=== PATIENT | male | born 1960 | race Caucasian/White ===

== ENCOUNTER 2022-12-30 05:23 | Observation (INO) ==
--- NOTE | 2022-12-19 15:08 | Anesthesiology Consultation ---
Date of Service December 19, 2022 Assessment & Plan (1) Encounter for pre-operative examination: - check BSG am DOS. - potential difficult intubation: chronic neck stiffness. - COVID screening: Per director of medicare on 12/19/2022: Travel screen negative, no known COVID-19 positive contacts or current COVID-19 related symptoms in past 2 weeks. To surgeon's discretion if preop COVID testing is needed. Chart Review Chart Review: Acceptable Risk for Surgery and Patient NOT seen in Pre Admission Testing History Surgery Operation Date: 12/30/22 07:00 Proposed Procedures p Hand Assisted Laparoscopic Nephrectomy - Left - Danilo Gomez MD Height/Weight Height: 6 ft Weight: 108.862 kg Allergies Allergy/AdvReac Type Severity Reaction Status Date / Time No Known Allergies Allergy Verified 12/19/22 14:21 Medications Home Medications Medication Instructions Recorded Confirmed Last Taken aspirin 81 mg chewable tablet 81 mg PO QAM 12/07/22 12/19/22 Unknown (Abdiel Chewable Low Dose Aspirin) dapagliflozin propanediol 10 mg 10 mg PO QAM 12/07/22 12/19/22 Unknown tablet (Farxiga) gabapentin 600 mg tablet 600 mg PO TID 12/07/22 12/19/22 Unknown lisinopril 10 mg tablet 10 mg PO QAM 12/07/22 12/19/22 Unknown metformin 1,000 mg tablet 1,000 mg PO BID 12/07/22 12/19/22 Unknown multivitamin 1 tab PO QAM 12/07/22 12/19/22 Unknown tirzepatide 7.5 mg/0.5 mL 7.5 mg subcut WK 12/07/22 12/19/22 Unknown subcutaneous pen injector (Mounjaro) cyanocobalamin (vitamin B-12) 5,000 mcg PO QAM 12/19/22 12/19/22 Unknown 5,000 mcg/mL sublingual drops (Vitamin B-12) Past Medical History Medical History (Updated 12/19/22 @ 15:05 by Frances Jane PA-C) Back problem Diabetes NIDDM Gallstones History of colon polyps x1 small HTN (hypertension) Mass of left kidney Neuropathy Snores Stiffness of neck for 2 yr/hx lymes test (-) Past Family History Family History Mother Family history of blood clots Brother Family history of blood clots Brother Family history of blood clots Past Surgical History Surgical History History of arthroscopic surgery of shoulder right History of back surgery History of colonoscopy Social History Smoking Status: Never smoker Do You Dip or Chew Tobacco: No Hx Alcohol Use: No alcohol intake frequency: holidays/special occasions only Hx Substance Use: No substance use type: does not use Lab Results Anesthesia Preop Results Results Anesthesia Widget: WBC 6.76 K/ul (4.8-10.8) 12/15/22 Hgb 13.5 g/dl (14.0-18.0) L 12/15/22 Hct 41.0 % (42.0-52.0) L 12/15/22 Plt 282 K/uL (130-400) 12/15/22 Na 135 mmol/L (136-145) L 12/15/22 K 4.0 mmol/L (3.5-5.1) 12/15/22 Cl 101 mmol/L (98-107) 12/15/22 CO2 25 mmol/L (21-32) 12/15/22 BUN 14 mg/dl (6-23) 12/15/22 Creat 0.86 mg/dl (0.6-1.4) 12/15/22 Glucose Level 208 mg/dl (70-99(Fasting)) H 12/15/22 Testing Laboratory Results 10/28/22 A1c: 6.3% UA 12/15/22: urine culture-final, no growth Electrocardiogram Date: 12/15/22 Sinus rhythm with frequent PVCs, rate 79 bpm Chest X-Ray Date: 12/15/22 No prior studies are available for comparison at the time of dictation. The heart is mildly enlarged. The pulmonary vasculature is noncongested. The lungs and pleural spaces are clear. There is no pneumothorax. The bony thorax appears intact. Gallstones are noted in the upper abdomen. IMPRESSION: No active disease in the chest. Other Testing Abdomen pelvis CT 12/15/22 1. There is a 7.8 cm heterogeneous mass lesion arising from the upper pole of the left kidney as detailed above. A renal cell carcinoma is the diagnosis of exclusion. 2. The mass lesion distorts and may invade the left upper pole collecting system. There is no evidence of left renal vein involvement. 3. There is a a 9 mm enhancing nodule between the upper pole of the left kidney and the spleen. Although this could represent a splenule, a perirenal implant is not excluded. 4. There is no evidence of distant metastatic disease in the abdomen or pelvis. 5. No enhancing cortical lesion is seen in the right kidney. 6. Cholelithiasis. 7. Additional findings as above.
[2022-12-30] MEDS ORDERED: LR 15ML/HR IV SCH (06:00)
[2022-12-30] MEDS ORDERED: SUGAMMADEX SODIUM 200 MG/2 ML VIAL IV ONE (06:43)
[2022-12-30] MEDS ORDERED: fentaNYL citrate PF 100 MCG/2 ML VIAL ONE (06:43)
[2022-12-30] MEDS ORDERED: PROPOFOL IV EMULSION 10 MG/ML 20 ML VIAL IV ONE (06:43)
[2022-12-30] MEDS ORDERED: ONDANSETRON INJ 2 MG/ML 2 ML VIAL ONE (06:43)
[2022-12-30] MEDS ORDERED: MIDAZOLAM HCL 1 MG/ML 2ML VIAL ONE (06:43)
[2022-12-30] MEDS ORDERED: ROCURONIUM BROMIDE 10 MG/ML 5 ML VIAL IV ONE ×2 (06:43→07:51)
[2022-12-30] MEDS ORDERED: DEXAMETHASONE SOD INJ 4 MG/ML VIAL ONE (06:43)
[2022-12-30] MEDS ORDERED: LIDOCAINE 2% 2 ML VIAL/AMP(20MG/ML) INFIL ONE (06:43)
--- NOTE | 2022-12-30 06:48 | History & Physical Bridge Note ---
Date of Service December 30, 2022 History & Physical Bridge Note I have examined the patient, reviewed the History & Physical and in the interval since the performance of the History & Physical I have noted the following changes of clinical significance: no changes noted
[2022-12-30] MEDS ORDERED: BUPIVACAINE 0.5 % 5 MG/1 ML MPF 30ML VIAL ONE (06:55)
[2022-12-30] MEDS ORDERED: HYDROmorphone INJ 2 MG/ML SYR/VIAL ONE (07:51)
[2022-12-30] MEDS ORDERED: ATROPINE SULFATE 0.1 MG/ML 10ML SYR IV PRN (08:00)
[2022-12-30] MEDS ORDERED: HYDROmorphone INJ 1 MG/ML SYRINGE IV PRN (08:00)
[2022-12-30] MEDS ORDERED: PROMETHAZINE HCL 12.5 MG in SODIUM CHLORIDE 0.9% 50 ML IV PRN (08:00)
[2022-12-30] MEDS ORDERED: ONDANSETRON INJ 2 MG/ML 2 ML VIAL IV PRN ×2 (08:00→12:12)
[2022-12-30] MEDS ORDERED: NALOXONE HCL 0.4 MG/1 ML VIAL/CARP IV PRN (08:00)
[2022-12-30] MEDS ORDERED: FLUMAZENIL 0.1 MG/1 ML 10 ML VIAL IV PRN (08:00)
[2022-12-30] MEDS ORDERED: ePHEDrine sulfate 50 MG/ML AMP IV PRN (08:00)
[2022-12-30] MEDS ORDERED: LABETALOL HCL IV 5 MG/ML 20ML IV PRN (08:00)
[2022-12-30] MEDS ORDERED: KETAMINE 50 MG/5 ML SYRINGE ONE (08:03)
[2022-12-30] MEDS ORDERED: LABETALOL HCL IV 5 MG/ML 20ML IV ONE (08:03)
--- NOTE | 2022-12-30 10:01 | Operative Report ---
PG Post Operative Report Pre & Post Diagnosis Operation Date: 12/30/22 07:00 Pre-Op Diagnosis: Left Renal Mass Post-Op Diagnosis: Left Renal Mass I identified the patient and participated in the time-out.: Yes Procedure Operation Date: 12/30/22 07:00 Actual Procedures p Hand Assisted Laparoscopic Nephrectomy - Left(Left) - Danilo Gomez MD Surgeon Danilo Gomez MD Lap Hand Tool Radha Weaver Estimated Blood Loss 25 Findings Consistent with Post-Op Diagnosis Specimens left kidney and portion of adrenal gland Description of Procedure Patient identified in the preoperative holding area, appropriate informed consents were reviewed and completed and he was transported to the operating suite. Upon arrival he received appropriate preoperative antibiotics in the form of Ancef. Adequate general anesthesia was induced and he was placed in a [id number] left side up lateral decubitus position and padded and braced appropriately. The bed was flexed. A Abraham style incision was made in the left lower quadrant to accommodate a GelPort retractor. This incision was carried through the superficial tissues including Norberto's fascia before exposure of the external oblique fascia. This was incised sharply and opened for the length of the incision. I then incised and opened the internal oblique fascia. Transversalis fascia was likewise opened before piercing the peritoneum sharply and performing a finger sweep. There were no adhesions in this area and the peritoneum was opened for the length of the incision. The GelPort retractor was then placed. I insufflated the abdomen through the GelPort by utilizing a 12 mm trocar placed through the opening of the GelPort. Inspection revealed a clear anterior abdominal wall and 212 mm aquatics assistant department head ports were placed a few centimeters lateral to the rectus border, the first placed approximately 3 fingerbreadths below the costal margin on the second approximately 8 cm inferior. To begin the laparoscopic portion of the case we mobilized the colon by incising the white line of Toldt and incising the peritoneum overlying the kidney. I carried this dissection between the kidney and the spleen to further allow mobilization of the kidney and medialization of the colon. After exposing the anterior and medial surface of the kidney, I was able to identify the gonadal vein. The anterior surface of the gonadal vein was exposed and I created a window just lateral to the gonadal vein and onto the psoas muscle. I was able to use this window to elevate the kidney and stretch the hilar structures. I dissected up the gonadal vein until we encountered the inferior aspect of the renal vein. Of note, there was a lobulated tissue mass just on top of the vein that I thought may be a lymph node. Unfortunately the size of this tissue limited the ability to pass a staple load across both that structure and the hilar structures simultaneously. In turn, I dissected behind this lesion and anterior to the renal vein the structure from the underlying renal vasculature. The vein and artery were then in a solitary packet and were controlled with a solitary staple load. Moving to the medial side of this somewhat protuberant tissue I was able to fire a second staple load and control it. This protuberant tissue was contained within the specimen. I then dissected up to the adrenal gland and used a staple load to fire across the medial portion of the adrenal gland. Because this is a large upper pole mass I elected to keep the majority of the adrenal gland with the specimen. We completed my cephalad dissection with harmonic scalpel. The lateral aspect of the kidney was then mobilized also with a harmonic scalpel before skeletonizing to Rhodus fascia inferior to the kidney. A staple load was used to control the lower portion of Gerota's fascia. This included the ureter. The specimen was then entirely freed and was extracted through the GelPort. Inspection of the renal fossa revealed excellent hemostasis. The colon was guided back into the left hemiabdomen and omentum was draped over the surgical bed. The 212 mm aquatics assistant department head ports were closed with 0 Vicryl [id number] sutures. 4-0 Monocryl was used for the skin. The main GelPort incision was closed in numerous layers. First peritoneum and transversalis fascia were reapproximated utilizing a running 0 Vicryl followed by a 0 PDS to reapproximate the internal and external oblique fascia is individually. A 0 Vicryl was used to reapproximate Norberto's fascia for closure of the skin with a running 4-0 Monocryl. All incisions were infiltrated with half percent Marcaine prior to closure. Dermabond was placed over each of the incisions. He was reversed of anesthesia and taken the recovery room in stable condition. The specimen was passed off the table for pathological analysis. There were no complications. Radha Weaver assisted from incision to closure I attest to the content of the Intraoperative Record and any orders documented therein. Any exceptions are noted below.
[2022-12-30] MEDS: fentaNYL citrate PF 100 MCG/2 ML VIAL IV PRN ×3 (10:10→10:20)
[2022-12-30 10:43] LABS: Basophils # (auto) 0.05 K/uL (0-0.2); Basophils % (auto) 0.5 %; Eosinophils # (auto) 0.02 K/uL (0-0.50); Eosinophils % (auto) 0.2 %; Hematocrit (blood only) 37.9 % (42.0-52.0); Hemoglobin 12.4 g/dl (14.0-18.0); Immature Granulocytes # (auto) 0.23 K/uL (0.01-0.20); Immature Granulocytes % (auto) 2.4 %; Lymphocytes # (auto) 0.84 K/uL (1.2-3.4); Lymphocytes % (auto) 8.8 %; Mean Corpuscular Hemoglobin 26.7 pg (25.0-34.0); Mean Corpuscular Hgb Conc 32.7 g/dL (32.0-36.0); Mean Corpuscular Volume 81.7 fL (80.0-100.0); Mean Platelet Volume 8.6 fL (9.4-12.4); Monocytes # (auto) 0.32 K/uL (0.11-0.59); Monocytes % (auto) 3.4 %; Neutrophils # (auto) 8.05 K/uL (1.40-6.50); Neutrophils % (auto) 84.7 %; Platelet Count 241 K/uL (130-400); RDW Coefficient of Variation 13.6 % (11.5-14.5); RDW Standard Deviation 40.2 fL (36.4-46.3); Red Blood Count 4.64 M/uL (4.70-6.10); White Blood Count 9.51 K/ul (4.8-10.8)
[2022-12-30 11:07] LABS: BUN Creatinine Ratio 19.1 (10-20); Calcium 8.7 mg/dl (8.6-10.3); Creatinine Clr Calc Pharmacy 103.7 ml/min; Est GFR (African American) 104.7 ml/min; Est GFR (Non-African American) 90.4 ml/min; Potassium 4.3 mmol/L (3.5-5.1)
--- NOTE | 2022-12-30 11:08 | Anesthesiology Progress Note ---
Date of Service December 30, 2022 Anesthesia Post Procedure Vital Signs Vital Signs: Temp Pulse Resp BP Pulse Ox O2 Del Method O2 Flow Rate 12/30/22 10:50 36.2 C L 82 20 152/87 H 96 Nasal Cannula 2 12/30/22 10:40 88 16 164/91 H 97 Nasal Cannula 2 12/30/22 10:30 74 20 153/90 H 97 Nasal Cannula 2 12/30/22 10:20 80 18 162/99 H 97 Nasal Cannula 2 12/30/22 10:10 74 14 149/97 H 98 Nasal Cannula 2 12/30/22 10:00 71 16 178/94 H 98 Oxymask 4 12/30/22 09:48 36 C L 80 16 162/103 H 99 Oxymask 10 12/30/22 05:48 36.6 C 79 20 141/89 H 96 Room Air Pain Intensity Generalized: Pain Intensity: 4 Transfer of Care Handoff Completed per policy Notes Mental Status: alert / awake / arousable Patient Amnestic to Procedure: Yes Nausea / Vomiting: adequately controlled Pain: adequately controlled Airway Patency, RR, SpO2: stable & adequate BP & HR: stable & adequate Hydration State: stable & adequate Anesthetic Complications: no major complications apparent
[2022-12-30] MEDS ORDERED: MoRPHine SULFATE 2 MG/ML CARP IV PRN (12:12)
[2022-12-30] MEDS ORDERED: oxyCODONE HCL IR 5 MG TAB (IMMEDIATE RELEASE) PO PRN ×2 (12:12)
[2022-12-30] MEDS ORDERED: PHARMACY GLYCEMIC MGMT CONSULT PRN (12:12)
[2022-12-30] MEDS ORDERED: ACETAMINOPHEN 325 MG TAB PO PRN (12:12)
[2022-12-30] MEDS: LACTATED RINGER'S 1,000 ML IV SCH ×2 (12:23→17:00)
[2022-12-30] MEDS ORDERED: DEXTROSE 50% 50 ML SYRINGE IV PRN (12:30)
[2022-12-30] MEDS ORDERED: GLUCOSE 10 TAB/TUBE PO PRN (12:30)
[2022-12-30] MEDS ORDERED: GLUCAGON FOR INJ 1 MG VIAL IM PRN (12:30)
[2022-12-30] MEDS ORDERED: GLUCOSE 40% GEL 15 GM TUBE PO PRN (12:30)
[2022-12-30] MEDS ORDERED: CARBOHYDRATES FOR HYPOGLYCEMIA PO PRN (12:30)
[2022-12-30] MEDS: INSULIN ASPART PER UNIT CHARGE SC SCH ×3 (13:20→21:39)
--- NOTE | 2022-12-30 14:07 | Pharmacy Report ---
Pharmacy Glycemic Short Note 2 - Date of Service December 30, 2022 - Glycemic Short BSG Results (Last 24 hours): 12/30/22 12/30/22 12/30/22 05:49 09:55 10:27 Glucose 250 H POC Glucose 182 H 213 H 12/30/22 12:21 Glucose POC Glucose 241 H OUTPATIENT ANTIDIABETIC REGIMEN: * Farxiga 10 mg PO daily * metformin 1 gm PO BID * Mounjaro 7.5 mg SQ weekly * HbA1C ordered for 12/30/22 ASSESSMENT: * Mr Razo is a 62 y/o M with a PMH of T2DM who presents for nephrectomy. Today is POD 0. * Patient received dexamethasone 4 mg IV intraoperatively. * Fasting BSG was 182 mg/dL and postop BSG was 241 mg/dL. Patient ordered clear liquid diet and consumed 23 grams CHO for lunch. * Due to hyperglycemia + steroid use, will give full weight-based stress of 3 now. Re-address basal tomorrow. * Novolog weight-based stress of 3. PLAN FOR INPATIENT GLYCEMIC CONTROL: * Hold outpatient oral diabetes medications * Basal insulin * Lantus 50 units SQ x 1 then reassess tomorrow * Bolus insulin * NovoLog per scale ACHS or Q6hrs while NPO * Goal Range: Low 110 mg/dL - High 140 mg/dL * Correction Factor: 15 mg/dL/unit * Nutritional / Prandial insulin per carb ratio of 1 unit per 5 grams CHO consumed
[2022-12-30] MEDS: ceFAZolin 2000MG 2,000 MG/15 ML SYR IV SCH ×2 (14:28→21:41)
[2022-12-30] MEDS ORDERED: LANTUS PER UNIT CHARGE SC ONE (14:30)
[2022-12-30] MEDS: HEPARIN SOD 5,000 UNIT/0.5 ML VIAL SQ SCH (21:41)
[2022-12-30] MEDS: DOCUSATE SODIUM 100 MG CAP PO SCH (21:41)
[2022-12-30] MEDS: MoRPHine SULFATE 2 MG/ML CARP IV PRN (21:59)
[2022-12-31] MEDS: INSULIN ASPART PER UNIT CHARGE SC SCH ×3 (00:12→09:17)
[2022-12-31] MEDS: LACTATED RINGER'S 1,000 ML IV SCH (05:02)
[2022-12-31 07:27] LABS: Basophils # (auto) 0.02 K/uL (0-0.2); Basophils % (auto) 0.2 %; Eosinophils # (auto) 0.01 K/uL (0-0.50); Eosinophils % (auto) 0.1 %; Hematocrit (blood only) 38.3 % (42.0-52.0); Hemoglobin 12.3 g/dl (14.0-18.0); Immature Granulocytes # (auto) 0.03 K/uL (0.01-0.20); Immature Granulocytes % (auto) 0.3 %; Lymphocytes # (auto) 1.82 K/uL (1.2-3.4); Lymphocytes % (auto) 20.2 %; Mean Corpuscular Hemoglobin 26.7 pg (25.0-34.0); Mean Corpuscular Hgb Conc 32.1 g/dL (32.0-36.0); Mean Corpuscular Volume 83.3 fL (80.0-100.0); Mean Platelet Volume 8.6 fL (9.4-12.4); Monocytes # (auto) 0.95 K/uL (0.11-0.59); Monocytes % (auto) 10.5 %; Neutrophils # (auto) 6.19 K/uL (1.40-6.50); Neutrophils % (auto) 68.7 %; Platelet Count 242 K/uL (130-400); RDW Coefficient of Variation 13.6 % (11.5-14.5); RDW Standard Deviation 41.2 fL (36.4-46.3); White Blood Count 9.02 K/ul (4.8-10.8)
[2022-12-31] MEDS: MoRPHine SULFATE 2 MG/ML CARP IV PRN (07:36)
[2022-12-31] MEDS: DOCUSATE SODIUM 100 MG CAP PO SCH (07:39)
[2022-12-31] MEDS: HEPARIN SOD 5,000 UNIT/0.5 ML VIAL SQ SCH (07:39)
[2022-12-31 07:41] LABS: BUN Creatinine Ratio 12.2 (10-20); Calcium 8.7 mg/dl (8.6-10.3); Est GFR (African American) 71.5 ml/min; Est GFR (Non-African American) 61.7 ml/min; Potassium 4.4 mmol/L (3.5-5.1)
[2022-12-31 07:54] LABS: Estimated Average Glucose 151 mg/dl; Hemoglobin A1C 6.9 % (4.5-5.6)
[2022-12-31] MEDS ORDERED: LANTUS PER UNIT CHARGE SC ONE (08:00)
--- NOTE | 2022-12-31 08:51 | Urology Progress Note ---
Date of Service December 31, 2022 Assessment & Plan (1) Renal mass: Plan: Postop day #1 status post left radical nephrectomy Jimenez out this morning Ambulate Creatinine currently 1.2baseline 0.9expected and appropriate change Hemoglobin stable Plan for discharge home after lunch Admission and Anticipated Discharge Date Admission Date: December 30, 2022 Subjective No issues overnight Ambulating Tolerating clear liquids Appropriate levels of pain Urine clear Labs all appropriategood urine output overnight Physical Exam Physical Exam: Abdomen soft, incisions appropriate, no ecchymosis Urine clear Results & Data Vital Signs (Past 12 Hours) Vital Signs Temp Pulse Resp BP Pulse Ox O2 Del Method 12/31/22 08:28 36.8 C 76 18 127/79 94 Room Air 12/31/22 04:26 36.9 C 68 16 130/67 94 Room Air 12/31/22 00:09 36.6 C 64 18 139/78 98 Room Air PG Care Time/CCT Total # of Minutes Spent Total Time Spent with Patient: Total time spent is greater than 50% in coordination of care (as documented) at patient's floor/unit and/or counseling patient: Coding Level of Care Code None Diagnoses Renal mass N28.89
[2022-12-31] MEDS ORDERED: GABAPENTIN 600 MG TAB PO SCH (09:00)
[2022-12-31] MEDS ORDERED: lisinopril 10 MG TAB PO SCH (09:00)
[2022-12-31] MEDS ORDERED: INSULIN ASPART PER UNIT CHARGE SC SCH (11:30)
== END 2022-12-31 11:00 | disposition home or self-care (01) ==
LOC: ASU 05:23 → INTOOBSV 09:52 → PACUINP 09:52 → 3W 12:11